=== PATIENT | female | born 1985 | race Caucasian/White ===

== ENCOUNTER → 2021-02-20 08:08 | Outpatient (CLI) | payer BC, SELFPAY ==
--- NOTE | 2021-02-20 08:15 | MRI_ITS ---
STUDY: MRI LEFT ANKLE WITHOUT CONTRAST REASON FOR EXAM: Medial and lateral left ankle pain, left ankle injury 5 months ago. TECHNIQUE: Standardized fat and water weighted pulse sequences were obtained in all 3 orthogonal planes. COMPARISON: None. FINDINGS: Normal subcutis adipose space. Normal posterior tibialis tendon. Normal flexor digitorum longus tendon. Normal flexor hallucis longus tendon. There is a small longitudinal split of the submalleolar peroneus brevis tendon (inversion recovery axial bullae images 11, 12) and a low-lying peroneus brevis muscle belly (T1 axial images 14-16). The peroneus longus tendon is morphologically normal. Normal tibialis anterior tendon. Normal extensor hallucis longus tendon. Normal extensor digitorum longus tendons. Normal Achilles tendon and teno-osseous insertion. Normal plantar fascia. Normal plantar calcaneal tubercles. Normal intrinsic muscles of the rearfoot. Normal distal tibiofibular syndesmotic ligamentous complex. There is a chronic low-grade partial tear of the anterior talofibular ligament (T2 axial image 14). Normal calcaneofibular and posterior talofibular ligaments. Normal subtalar ligaments and sinus tarsi. Normal deltoid ligamentous complexes. Normal plantar calcaneonavicular (spring) ligament. There is a small tibiotalar joint effusion (inversion recovery sagittal images 10, 11). Normal talar dome. There is a small posterior subtalar joint effusion (inversion recovery sagittal image 11). Normal talonavicular articulation. Normal calcaneocuboid articulation. There is chronic healed fracture deformity of the anterior superior calcaneal process (T1 sagittal images 12-14) without residual bone edema. Normal navicular-cuneiform articulations. MRI/Lower Ext Joint Only (Routine) IMPRESSION: Small longitudinal split of the peroneus brevis tendon. 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 Chronic healed fracture deformity of the anterior superior calcaneal process. Small tibiotalar and posterior subtalar joint effusions. Electronically Signed: João Patiño MD at 10:30 EST Tel , Service support ,
== END ==
PROVIDERS: Referring Provider Orthopaedic Surgery; Visit Provider Orthopaedic Surgery
DX: M76.72 Peroneal tendinitis, left leg (principal); M25.372 Other instability, left ankle
CPT/HCPCS: 73721

== ENCOUNTER 2021-10-20 16:30 | Outpatient (RCR) | payer BC, SELFPAY ==
--- NOTE | 2021-08-20 09:13 | HP.PTEVAL_ITS ---
Patient's Visit Information DAVE MANN is a 35 year old F referred to Physical Therapy by Dr. Angela Dangelo MD with a diagnosis of L peroneal tendon debridement and lateral ankle ligament reconstruction 06/25. Date of Evaluation: 08/20/21 Physical Therapist: Aguilar Tirado, PT, ATC - Visit Plan Frequency: 2x /Week Duration: 6-8 weeks Plan: L ankle PROM/mobs, stretching and strengthening, balance and proprio, bike, and HEP. Begin with NWB'ing activity and progress to WBAT. - Subjective DOS: 06/24/2021. Pt reports she had a L peroneus tendon debridement and left lateral ligament reconstruction. Pt reports this was all secondary to her falling on her steps in 09/24/2020. Pt reports her pain would not improve through the use of PT over the intermittent months, and so surgery was needed. Pt is very happy she had the surgery. Pt notes she is still in pain, but much less than prior to surgery. Pt reports her foot is mostly numb, and reports it feels like pins and needles often. Pt reports no sleep difficulty as long as she takes pain meds prior to bed. Pt reports she just began putting weight through her L LE, and notes she is able to partially WB but has to go really slow. 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 Pt reports she was an avid walker prior to surgery. 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 Pt reports her L ankle pain is 4/10 at rest, 7/10 by the end of her work day. - Pain L ankle Pain Intensity (Out of 10): 4 Pain Intensity Range: 7 - Objective Neuro: R LE sensation is WNL to light touch. L LE is hyposensitive to light touch from her ankle downwards. Observation: Incisions are healed at this time. Minor swelling noted throughout. No obvious deformity at this time. Swelling: L ankle 51 cm, R ankle 50 cm. ROM: R ankle DF= 10, PF= 60; L ankle DF= 0, PF= 10. MMT: R ankle is 5/5 throughout. L ankle not tested this date secondary to lack of ROM. Gait: Pt is weight bearing very minimal weight at this time. 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 Goal Time Frame: 4-6 Weeks Goal 4:: I with HEP Goal Time Frame: 4-6 Weeks - Rehabilitation Potential Physical Therapy Diagnosis: Pt has L ankle weakness, limited ROM, and pain secondary to being s/p L ankle surgery Rehabilitation Potential: Good - Anticipated Interventions Patient/Client Instruction: Educate patient on: Condition, Plan of Care For the Purpose of:: To improve self management Therapeutic Exercise to Include: Strength training, Endurance training, Balance training, Flexibilty training, Gait and locomotor training, Passive ROM, Active ROM For the Purpose of:: To decrease pain, To increase ROM, To improve muscle performance and motor function Manual Therapy Techniques to Include: Mobilization, Passive ROM For the Purpose of:: To decrease pain, To increase ROM, To improve muscle perf ormance and motor function Cryotherapy (ice pack, ice massage): Yes For the Purpose of:: To decrease pain Thank you for the opportunity to evaluate your patient. For Medicare and Medicare HMO plans, please review the plan of care and approve it. It will need to be FAXED BACK to us at [phone] for Medicare purposes. For Medicare only, by signing this I certify the plan of care. Please let me know if there are questions or concerns regarding this plan of care. Physician Signature: Date:
--- NOTE | 2021-09-26 15:55 | HP.PTREVAL ---
Dr. Angela Dangelo MD, It has been my pleasure to treat DAVE MANN over the last 11 visits for L peroneal tendon debridement and lateral ankle ligament reconstruction 06/25. Please see the progress note below for an update on the physical therapy plan of care! Subjective: Pt reports she is feeling better, but is still very weak Objective/Function: L ankle pain ranges from 3-6/10. L ankle DF ROM: 10 degrees. L ankle MMT: 4-/5 throughout. 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: 4-6 Weeks Goal Progress: Progressing Goal 4:: I with HEP Goal Time Frame: 4-6 Weeks Goal Progress: Progressing Anticipated Interventions Patient/Client Instruction: Educate patient on: Condition, Plan of Care For the Purpose of:: To improve self management Therapeutic Exercise to Include: Strength training, Endurance training, Balance training, Flexibilty training, Gait and locomotor training, Passive ROM, Active ROM For the Purpose of:: To decrease pain, To increase ROM, To improve muscle performance and motor function Manual Therapy Techniques to Include: Mobilization, Passive ROM For the Purpose of:: To decrease pain, To increase ROM, To improve muscle performance and motor function Cryotherapy (ice pack, ice massage): Yes For the Purpose of:: To decrease pain Please do not hesitate to contact me at [phone] by phone or if you have questions or concerns regarding this new plan of care! Sincerely, Aguilar Tirado, PT, ATC
--- NOTE | 2021-10-20 17:09 | HP.PTREVAL_ITS ---
Dr. Angela Dangelo MD, It has been my pleasure to treat DAVE MANN over the last 17 visits for L peroneal tendon debridement and lateral ankle ligament reconstruction 06/25. Please see the progress note below for an update on the physical therapy plan of care! Subjective: we did a lot of walking this weekend. I dont usually have a pain issue, its more of a weakness and swelling issue Objective/Function: L ankle pain is 2/10. L ankile DF ROM: 10 degrees. L ankle strength is grossly 4-/5 throughout. Pt is I with HEP. 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: 4-6 Weeks Goal Progress: Progressing Goal 4:: I with HEP Goal Time Frame: 4-6 Weeks Goal Progress: Goal Met Anticipated Interventions Patient/Client Instruction: Educate patient on: Condition, Plan of Care For the Purpose of:: To improve self management Therapeutic Exercise to Include: Strength training, Endurance training, Balance training, Flexibilty training, Gait and locomotor training, Passive ROM, Active ROM For the Purpose of:: To decrease pain, To increase ROM, To improve muscle performance and motor function Manual Therapy Techniques to Include: Mobilization, Passive ROM For the Purpose of:: To decrease pain, To increase ROM, To improve muscle performance and motor function Cryotherapy (ice pack, ice massage): Yes For the Purpose of:: To decrease pain Please do not hesitate to contact me at [phone] by phone or Fax: if you have questions or concerns regarding this new plan of care! Sincerely, Aguilar Tirado, PT, ATC
--- NOTE | 2021-12-09 13:35 | HP.PT.NRP ---
DAVE MANN was seen in my office for initial evaluation on 08/20/21. The following Plan of Care was established for this patient: Initial Frequency: 2x /Week Initial Duration: 6-8 weeks Patient/Client Instruction: Educate patient on: Condition, Plan of Care For the Purpose of:: To improve self management Therapeutic Exercise to Include: Strength training, Endurance training, Balance training, Flexibilty training, Gait and locomotor training, Passive ROM, Active ROM For the Purpose of:: To decrease pain, To increase ROM, To improve muscle performance and motor function Manual Therapy Techniques to Include: Mobilization, Passive ROM For the Purpose of:: To decrease pain, To increase ROM, To improve muscle performance and motor function Cryotherapy (ice pack, ice massage): Yes For the Purpose of:: To decrease pain This patient was last seen in our office . Pertinent comments regarding their Physical therapy will appear below: Pt was treated for L ankle pain for 17 PT visits through the date of 10/20/21. Pt has not returned through todays date and is discontinued at this time. At this point I will be discontinuing this patient from physical therapy. I would be happy to see this patient again in the future if found appropriate by the physician. Thank you! Aguilar Tirado, PT, ATC Balance/Gait/Functional tests - Balance/Special Test Scores Lower Extremity Functional Score: 48
== END 2021-10-20 19:00 | disposition home or self-care (01) ==
LOC: PT 16:30
PROVIDERS: Referring Provider Orthopaedic Surgery; Visit Provider Orthopaedic Surgery
DX: M76.72 Peroneal tendinitis, left leg (principal); M25.372 Other instability, left ankle
CPT/HCPCS: 97110; 97140; 97161; 97164; 97530